=== PATIENT | female | born 1975 | race Caucasian/White ===

== ENCOUNTER 2023-08-14 07:38 | Day surgery (SDC) | payer BC ==
[2023-08-07 12:57] VITALS: BMI 27.4
[2023-08-14 09:13] VITALS: TEMP 97.7
[2023-08-14 09:15] VITALS: BP 104/62; PULSE 78; RESP 19
== END 2023-08-14 09:19 | disposition home or self-care (01) ==
LOC: FASU-ENDO 07:38
PROVIDERS: ATTEND Internal Medicine Gastroenterology
PROC: 0DBL8ZX Excision of Transverse Colon, Via Natural or Artificial Opening Endoscopic, Diagnostic (ICD-10-PCS; principal; 2023-08-14 08:40)
DX: Z12.11 Encounter for screening for malignant neoplasm of colon (principal); K63.5 Polyp of colon
CPT/HCPCS: 81025; 88305-TC